=== PATIENT | male | born 1950 | race Caucasian/White ===

== ENCOUNTER 2016-08-12 04:11 | Inpatient (IN) | payer MEDICARE, MEDICAID ==
[~2016-08-12] VITALS: Ht 170.2 cm; Wt 82.2 kg
[~2016-08-12 04:11] MED LIST: ACLI400A2 IH; ALBU0.63 NEB; ALBU6.7H INH; ALEN70TA3 PO; AMLO2.5T2 PO; AMLO5TAB2 PO; ASPI-515 PO; ATOR40TA PO; ATOR40TA78 PO; CARV-39 PO; CHOL-1 PO; CLON0.2T PO; CLOP75TA PO; CLOP75TA22 PO; CYCL-259 PO; DOCU-30 PO; FERR325T20 PO; FURO-93 PO; GLIM1TAB PO; GLYB2.5T2 PO; HYDR-3138 PO; HYDR-3342 PO; HYDR12.53 PO; K DUR PO; LEVE750T37 PO; LISI-167 PO; LISI-420 PO; LISI40TA PO; MAGN400O4 PO; METF10002 PO; METH-356 PO; MORP30TA PO; MORP30TA81 PO; NIAC500T PO; NICO1PAT5 TD; NITR0.4T8 SL; OXYC10TA6 PO; POLY17PO5 PO; POTA20TA89 PO; PRAS10TA4 PO; ROSU10TA PO; ROSU20TA PO; SEIZURE MED PO; SIMV10TA3 PO; TAMS-11 PO; TIOT18CA INH
[2016-08-12] MEDS ORDERED: SODIUM CHLORIDE 0.9% 1,000 ML IV ONE (04:46)
[2016-08-12] MEDS ORDERED: ONDANSETRON 2MG/ML, 2ML ONE (04:59)
[2016-08-12] MEDS ORDERED: HYDROmorphone 1 MG/ML, 1ML ONE ×2 (04:59→07:58)
[2016-08-12] MEDS ORDERED: ONDANSETRON 2MG/ML, 2ML IVPush ONE (05:00)
[2016-08-12] MEDS ORDERED: SODIUM CHLORIDE FLUSH 10ML SYR IVF ONE (05:00)
[2016-08-12] MEDS: HYDROmorphone 1 MG/ML, 1ML IVPush PRN ×2 (05:08→08:03)
[2016-08-12 05:38] LABS: HEMOGLOBIN 13.5 g/dL (13.7-18.0)
[2016-08-12 05:39] LABS: ASPARTATE AMINO TRANSFERASE 7 U/L (15-37); BLOOD UREA NITROGEN 13 mg/dL (7-18)
[2016-08-12] MEDS ORDERED: SODIUM CHLORIDE 0.9% 1,000 ML IV SCH (09:40)
[2016-08-12] MEDS ORDERED: DOCUSATE 100 MG CAPSULE PO PRN (10:00)
[2016-08-12] MEDS: HEPARIN 5,000 UNITS/ML, 1ML SQ SCH ×2 (10:00→18:00)
[2016-08-12] MEDS ORDERED: BISACODYL 10 MG SUPP PR PRN (10:00)
[2016-08-12] MEDS ORDERED: TEMPLATE NON-FORMULARY MED. (Lisinopril** 40 MG) PO SCH (10:00)
[2016-08-12] MEDS ORDERED: ACETAMINOPHEN 325 MG TABLET PO PRN (10:00)
[2016-08-12] MEDS: PRASUGREL 10 MG TABLET PO SCH (10:00)
[2016-08-12] MEDS ORDERED: ONDANSETRON 2MG/ML, 2ML IVP PRN (10:00)
[2016-08-12] MEDS ORDERED: HEPARIN 5,000 UNITS/ML, 1ML ONE (10:46)
[2016-08-12] MEDS ORDERED: LISINOPRIL 20 MG TABLET ONE (10:46)
[2016-08-12] MEDS ORDERED: MORPHINE SULFATE 4 MG/ML, 1ML ONE ×2 (12:09→16:10)
[2016-08-12] MEDS: MORPHINE SULFATE 4 MG/ML, 1ML IVPush PRN ×4 (12:12→21:51)
[2016-08-12] MEDS ORDERED: LISINOPRIL 20 MG TABLET PO SCH (17:24)
[2016-08-12 17:48] VITALS: BP 138/95
[2016-08-12 19:15] VITALS: BP 119/84
[2016-08-12] MEDS: HYDROcodone/APAP 5/325 TABLET PO PRN (19:51)
[2016-08-12] MEDS: ALBUTEROL SULFATE INH SCH (21:00)
[2016-08-12] MEDS ORDERED: AMLODIPINE 5 MG TABLET PO SCH (21:00)
[2016-08-12] MEDS ORDERED: CARVEDILOL 25 MG TABLET PO SCH (21:00)
[2016-08-12] MEDS ORDERED: ASPIRIN 81 MG TABLET EC PO SCH (21:00)
[2016-08-12] MEDS: ATORVASTATIN 40 MG TABLET PO SCH (21:50)
[2016-08-12] MEDS: DOCUSATE 100 MG CAPSULE PO SCH (21:51)
[2016-08-12] MEDS: INSULIN REGULAR 100 UNITS/ML, 3ML VIAL SQ-INSULIN SCH (21:52)
[2016-08-13] MEDS: HEPARIN 5,000 UNITS/ML, 1ML SQ SCH ×4 (01:41→23:26)
[2016-08-13] MEDS: MORPHINE SULFATE 4 MG/ML, 1ML IVPush PRN ×3 (01:42→23:27)
[2016-08-13 01:51] VITALS: BP 90/51
[2016-08-13 03:54] VITALS: BP 96/70
[2016-08-13 06:25] LABS: HEMOGLOBIN 13.1 g/dL (13.7-18.0)
[2016-08-13 06:37] LABS: BLOOD UREA NITROGEN 19 mg/dL (7-18)
[2016-08-13 07:05] VITALS: BP 98/71
[2016-08-13] MEDS: ALBUTEROL SULFATE INH SCH ×2 (07:51→21:00)
[2016-08-13] MEDS: GLIMEPIRIDE 1 MG TABLET PO SCH (07:52)
[2016-08-13] MEDS: TAMSULOSIN 0.4 MG CAP.ER.24H PO SCH (07:52)
[2016-08-13] MEDS: LEVETIRACETAM 500 MG TABLET PO SCH (07:55)
[2016-08-13] MEDS: POTASSIUM CHLORIDE 20 MEQ TAB.ER.PRT PO SCH (07:56)
[2016-08-13] MEDS: PRASUGREL 10 MG TABLET PO SCH (07:57)
[2016-08-13] MEDS: FUROSEMIDE 20 MG TABLET PO SCH (07:58)
[2016-08-13] MEDS: ASPIRIN 81 MG TABLET EC PO SCH (07:59)
[2016-08-13] MEDS: AMLODIPINE 5 MG TABLET PO SCH ×2 (08:07→20:31)
[2016-08-13] MEDS: CARVEDILOL 25 MG TABLET PO SCH ×2 (08:07→20:31)
[2016-08-13] MEDS: LISINOPRIL 20 MG TABLET PO SCH (08:07)
[2016-08-13] MEDS: INSULIN REGULAR 100 UNITS/ML, 3ML VIAL SQ-INSULIN SCH ×4 (08:28→20:32)
[2016-08-13] MEDS: HYDROcodone/APAP 5/325 TABLET PO PRN ×3 (10:30→20:31)
[2016-08-13 13:44] VITALS: BP 114/69
[2016-08-13 19:35] VITALS: BP 116/76
[2016-08-13] MEDS: DOCUSATE 100 MG CAPSULE PO SCH (20:31)
[2016-08-13] MEDS: ATORVASTATIN 40 MG TABLET PO SCH (20:31)
[2016-08-13] MEDS: POLYETHYLENE GLYCOL 17 GM PACKET PO PRN (20:40)
[2016-08-13 22:31] VITALS: BP 128/86
[2016-08-14 01:33] VITALS: BP 100/67
[2016-08-14 05:27] LABS: HEMOGLOBIN 12.1 g/dL (13.7-18.0)
[2016-08-14 05:35] LABS: BLOOD UREA NITROGEN 23 mg/dL (7-18)
[2016-08-14] MEDS: HYDROcodone/APAP 5/325 TABLET PO PRN ×3 (06:04→20:31)
[2016-08-14 07:06] VITALS: BP 109/72
[2016-08-14] MEDS: ALBUTEROL SULFATE INH SCH ×2 (08:17→21:00)
[2016-08-14] MEDS: INSULIN REGULAR 100 UNITS/ML, 3ML VIAL SQ-INSULIN SCH ×4 (08:17→20:48)
[2016-08-14] MEDS: ASPIRIN 81 MG TABLET EC PO SCH (08:18)
[2016-08-14] MEDS: GLIMEPIRIDE 1 MG TABLET PO SCH (08:18)
[2016-08-14] MEDS: LEVETIRACETAM 500 MG TABLET PO SCH (08:19)
[2016-08-14] MEDS: PRASUGREL 10 MG TABLET PO SCH (08:19)
[2016-08-14] MEDS: POTASSIUM CHLORIDE 20 MEQ TAB.ER.PRT PO SCH (08:21)
[2016-08-14] MEDS: TAMSULOSIN 0.4 MG CAP.ER.24H PO SCH (08:23)
[2016-08-14] MEDS: FUROSEMIDE 20 MG TABLET PO SCH (09:00)
[2016-08-14] MEDS: AMLODIPINE 5 MG TABLET PO SCH ×2 (09:00→20:31)
[2016-08-14] MEDS: LISINOPRIL 20 MG TABLET PO SCH (10:49)
[2016-08-14] MEDS: CARVEDILOL 25 MG TABLET PO SCH ×2 (10:49→20:31)
[2016-08-14] MEDS: HEPARIN 5,000 UNITS/ML, 1ML SQ SCH ×2 (10:51→18:23)
[2016-08-14] MEDS: MORPHINE SULFATE 4 MG/ML, 1ML IVPush PRN ×4 (12:20→23:25)
[2016-08-14 12:41] VITALS: BP 113/76
[2016-08-14 18:48] VITALS: BP 108/73
[2016-08-14 19:11] VITALS: BP 109/72
[2016-08-14] MEDS: POLYETHYLENE GLYCOL 17 GM PACKET PO PRN (20:30)
[2016-08-14] MEDS: ATORVASTATIN 40 MG TABLET PO SCH (20:31)
[2016-08-14] MEDS: DOCUSATE 100 MG CAPSULE PO SCH (20:31)
[2016-08-14 23:24] VITALS: BP 124/85
[2016-08-15 00:59] VITALS: BP 102/67
[2016-08-15] MEDS: HYDROcodone/APAP 5/325 TABLET PO PRN ×2 (02:05→06:28)
[2016-08-15] MEDS: HEPARIN 5,000 UNITS/ML, 1ML SQ SCH ×2 (02:06→08:20)
[2016-08-15] MEDS: MORPHINE SULFATE 4 MG/ML, 1ML IVPush PRN (03:38)
[2016-08-15 05:11] LABS: HEMOGLOBIN 12.3 g/dL (13.7-18.0)
[2016-08-15 05:18] LABS: BLOOD UREA NITROGEN 24 mg/dL (7-18)
[2016-08-15 06:41] VITALS: BP 110/74
[2016-08-15] MEDS: LEVETIRACETAM 500 MG TABLET PO SCH (08:19)
[2016-08-15] MEDS: TAMSULOSIN 0.4 MG CAP.ER.24H PO SCH (08:19)
[2016-08-15] MEDS: GLIMEPIRIDE 1 MG TABLET PO SCH (08:19)
[2016-08-15] MEDS: LISINOPRIL 20 MG TABLET PO SCH (08:19)
[2016-08-15] MEDS: INSULIN REGULAR 100 UNITS/ML, 3ML VIAL SQ-INSULIN SCH (08:19)
[2016-08-15] MEDS: POTASSIUM CHLORIDE 20 MEQ TAB.ER.PRT PO SCH (08:19)
[2016-08-15] MEDS: AMLODIPINE 5 MG TABLET PO SCH (08:20)
[2016-08-15] MEDS: CARVEDILOL 25 MG TABLET PO SCH (08:20)
[2016-08-15] MEDS: FUROSEMIDE 20 MG TABLET PO SCH (08:20)
[2016-08-15] MEDS: PRASUGREL 10 MG TABLET PO SCH (08:20)
[2016-08-15] MEDS: ASPIRIN 81 MG TABLET EC PO SCH (08:20)
[2016-08-15] MEDS: ALBUTEROL SULFATE INH SCH (08:23)
[2016-08-15] MEDS ORDERED: ALBUTEROL SULFATE 2.5 MG/3 ML NPPB SCH (09:00)
[2016-08-15] MEDS ORDERED: ASPI-515 PO (09:27)
[2016-08-15] MEDS ORDERED: AMLO5TAB2 PO (09:27)
== END 2016-08-15 13:41 | disposition home or self-care (01) | DRG 101 ==
LOC: ED 07:57 → EDIP 08:46 → 3NE 17:17
PROVIDERS: ADMIT Family Medicine; ATTEND Family Medicine
DX: G40.909 Epilepsy, unspecified, not intractable, without status epilepticus (principal); G89.11 Acute pain due to trauma; W01.0XXA Fall on same level from slipping, tripping and stumbling without subsequent striking against object, initial encounter; I25.5 Ischemic cardiomyopathy; I48.0 Paroxysmal atrial fibrillation; E11.22 Type 2 diabetes mellitus with diabetic chronic kidney disease; E78.5 Hyperlipidemia, unspecified; I25.10 Atherosclerotic heart disease of native coronary artery without angina pectoris; Z99.81 Dependence on supplemental oxygen; J44.9 Chronic obstructive pulmonary disease, unspecified; I71.4 Abdominal aortic aneurysm, without rupture; Z85.528 Personal history of other malignant neoplasm of kidney; Z86.73 Personal history of transient ischemic attack (TIA), and cerebral infarction without residual deficits; I73.9 Peripheral vascular disease, unspecified; Z66 Do not resuscitate; N18.3 Chronic kidney disease, stage 3 (moderate); Z91.14 Patient's other noncompliance with medication regimen; Y93.01 Activity, walking, marching and hiking; R26.2 Difficulty in walking, not elsewhere classified; I12.9 Hypertensive chronic kidney disease with stage 1 through stage 4 chronic kidney disease, or unspecified chronic kidney disease; M06.9 Rheumatoid arthritis, unspecified; F17.200 Nicotine dependence, unspecified, uncomplicated; G89.29 Other chronic pain; M54.9 Dorsalgia, unspecified; Z87.442 Personal history of urinary calculi; Z79.899 Other long term (current) drug therapy
CPT/HCPCS: 36415; 72110; 72192; 80048; 80053; 82542; 82962; 83735; 85025; 93005; 94640; 96361; 96372; 96374; 96375; 96376; J1170; J1644; J1815; J2405; J7613; J7030

== ENCOUNTER 2016-11-18 22:02 | Inpatient (IN) | payer MEDICARE, MEDICAID ==
[~2016-11-18] VITALS: Ht 160 cm; Wt 71.1 kg
[2016-11-18] MEDS ORDERED: ALBUTEROL/IPRATROPIUM 2.5MG/0.5MG, 3 ML ONE (22:20)
[2016-11-18] MEDS ORDERED: methylPREDNISolone SOD SUCC 125 MG/2 ML IVP ONE (22:30)
[2016-11-18] MEDS ORDERED: SODIUM CHLORIDE 0.9% 1,000ML IVBOLUS ONE (22:30)
[2016-11-18] MEDS ORDERED: ALBUTEROL/IPRATROPIUM 2.5MG/0.5MG, 3 ML NPPB ONE (22:30)
[2016-11-18] MEDS ORDERED: SODIUM CHLORIDE FLUSH 10ML SYR IVF ONE (22:30)
[2016-11-18] MEDS ORDERED: methylPREDNISolone SOD SUCC 125 MG/2 ML ONE (22:34)
[2016-11-18 22:48] LABS: BLOOD UREA NITROGEN 29 mg/dL (7-18)
[2016-11-18 22:53] LABS: IS PT STATUS REG ER OR PRE ER? YES
[2016-11-18] MEDS ORDERED: NITROGLYCERIN OINT 2%, 1GM TP ONE ×2 (23:15→23:30)
[2016-11-19] VITALS (11 sets, daily range): BP systolic 82–149; BP diastolic 58–106
[2016-11-19] MEDS ORDERED: BISACODYL 10 MG SUPP PR PRN (00:30)
[2016-11-19] MEDS ORDERED: SODIUM CHLORIDE FLUSH 10ML SYR IVF PRN (00:30)
[2016-11-19] MEDS ORDERED: POLYETHYLENE GLYCOL 17 GM PACKET PO PRN ×2 (00:30)
[2016-11-19] MEDS: methylPREDNISolone SOD SUCC 125 MG/2 ML IVPush SCH ×5 (00:30→23:55)
[2016-11-19] MEDS ORDERED: ENALAPRILAT 1.25 MG/ML, 2ML IVPush PRN (00:30)
[2016-11-19] MEDS ORDERED: ONDANSETRON 2MG/ML, 2ML IVPush PRN (00:30)
[2016-11-19] MEDS ORDERED: MORPHINE SULFATE 4 MG/ML, 1ML ONE (00:44)
[2016-11-19] MEDS: morphine SULFATE 10 MG/ML, 1ML IVPush PRN ×4 (00:48→23:54)
[2016-11-19] MEDS: AZITHROMYCIN 500 MG in SODIUM CHLORIDE 0.9% 250 ML IV SCH ×2 (01:12→23:55)
[2016-11-19] MEDS ORDERED: ALBUTEROL SULFATE 2.5 MG/3 ML NPPB PRN (01:30)
[2016-11-19] MEDS ORDERED: HEPARIN 5,000 UNITS/ML, 1ML IV PRN (02:00)
[2016-11-19] MEDS ORDERED: HEPARIN 5,000 UNITS/ML, 1ML IV ONE (02:00)
[2016-11-19] MEDS ORDERED: HEPARIN 25,000 UNITS/500ML PMX 500 ML IV PRN (02:00)
[2016-11-19] MEDS: FUROSEMIDE 20 MG/2 ML IV SCH ×3 (04:27→17:00)
[2016-11-19] MEDS: DOCUSATE 100 MG CAPSULE PO SCH ×2 (04:27→20:40)
[2016-11-19] MEDS: ATORVASTATIN 80 MG TABLET PO SCH ×2 (04:27→20:41)
[2016-11-19 06:04] LABS: BLOOD UREA NITROGEN 28 mg/dL (7-18)
[2016-11-19 06:09] LABS: ASPARTATE AMINO TRANSFERASE 12 U/L (15-37)
[2016-11-19 06:13] LABS: IS PT STATUS REG ER OR PRE ER? NO
[2016-11-19] MEDS ORDERED: ALBUTEROL/IPRATROPIUM 2.5MG/0.5MG, 3 ML NPPB SCH (07:00)
[2016-11-19] MEDS: NITROGLYCERIN 0.4 MG BOTTLE (25 TABS) SL PRN ×3 (08:19→23:44)
[2016-11-19] MEDS ORDERED: NITROGLYCERIN 0.4 MG BOTTLE (25 TABS) SL PRN (08:30)
[2016-11-19] MEDS ORDERED: NITROGLYCERIN 0.4 MG/SPRAY SL PRN (08:30)
[2016-11-19] MEDS ORDERED: CARVEDILOL 25 MG TABLET PO SCH (09:00)
[2016-11-19] MEDS ORDERED: POTASSIUM CHLORIDE 20 MEQ TAB.ER.PRT PO SCH (09:00)
[2016-11-19] MEDS ORDERED: AMLODIPINE 5 MG TABLET PO SCH (09:00)
[2016-11-19] MEDS ORDERED: FUROSEMIDE 20 MG TABLET PO SCH (09:00)
[2016-11-19] MEDS ORDERED: LISINOPRIL 20 MG TABLET PO SCH (09:00)
[2016-11-19] MEDS ORDERED: LEVETIRACETAM 500 MG TABLET PO SCH (09:00)
[2016-11-19] MEDS: GLIMEPIRIDE 1 MG TABLET PO SCH (09:32)
[2016-11-19] MEDS: ASPIRIN 81 MG TABLET EC PO SCH (09:33)
[2016-11-19] MEDS: PRASUGREL 10 MG TABLET PO SCH (09:34)
[2016-11-19] MEDS: TAMSULOSIN 0.4 MG CAP.ER.24H PO SCH (09:34)
[2016-11-19] MEDS: SENNA/DOCUSATE TABLET PO SCH (09:35)
[2016-11-19 10:49] LABS: IS PT STATUS REG ER OR PRE ER? NO
[2016-11-19] MEDS ORDERED: LEVE500T8 PO (11:41)
[2016-11-19] MEDS ORDERED: SODIUM CHLORIDE 0.9%, 500ML IVBOLUS ONE (12:00)
[2016-11-19] MEDS: ALBUTEROL/IPRATROPIUM 2.5MG/0.5MG, 3 ML NPPB SCH ×2 (13:57→20:50)
[2016-11-19] MEDS: ACETAMINOPHEN 325 MG TABLET PO PRN (16:07)
[2016-11-19] MEDS: LEVETIRACETAM 500 MG TABLET PO SCH (20:41)
[2016-11-19] MEDS: CARVEDILOL 12.5 MG TABLET PO SCH (20:41)
[2016-11-20 01:15] VITALS: BP 131/82
[2016-11-20] MEDS: ACETAMINOPHEN 325 MG TABLET PO PRN ×2 (02:52→16:59)
[2016-11-20 05:35] LABS: BLOOD UREA NITROGEN 45 mg/dL (7-18)
[2016-11-20 05:38] LABS: ASPARTATE AMINO TRANSFERASE 18 U/L (15-37)
[2016-11-20] MEDS: methylPREDNISolone SOD SUCC 125 MG/2 ML IVPush SCH ×2 (06:23→12:50)
[2016-11-20] MEDS ORDERED: FUROSEMIDE 20 MG/2 ML IV SCH (07:30)
[2016-11-20 08:12] LABS: DIFF TOTAL CELLS COUNTED 100 CELL DIFF
[2016-11-20 08:14] LABS: GIANT PLATELETS 1+; LARGE PLATELETS 1+; VERIFY COUNTS? YES
[2016-11-20 08:15] LABS: ANISOCYTOSIS 1+
[2016-11-20 08:16] LABS: POLYCHROMASIA 1+
[2016-11-20 08:26] VITALS: BP 100/68
[2016-11-20] MEDS: ALBUTEROL/IPRATROPIUM 2.5MG/0.5MG, 3 ML NPPB SCH ×3 (09:00→21:05)
[2016-11-20] MEDS: CARVEDILOL 12.5 MG TABLET PO SCH ×2 (09:00→22:06)
[2016-11-20] MEDS: AMLODIPINE 5 MG TABLET PO SCH (09:00)
[2016-11-20] MEDS: LEVETIRACETAM 500 MG TABLET PO SCH ×2 (09:08→22:06)
[2016-11-20] MEDS: SENNA/DOCUSATE TABLET PO SCH (09:08)
[2016-11-20] MEDS: ASPIRIN 81 MG TABLET EC PO SCH (09:08)
[2016-11-20] MEDS: TAMSULOSIN 0.4 MG CAP.ER.24H PO SCH (09:08)
[2016-11-20] MEDS: GLIMEPIRIDE 1 MG TABLET PO SCH (09:08)
[2016-11-20] MEDS: PRASUGREL 10 MG TABLET PO SCH (10:48)
[2016-11-20 10:49] VITALS: BP 107/73
[2016-11-20] MEDS: LISINOPRIL 20 MG TABLET PO SCH (10:49)
[2016-11-20 12:53] VITALS: BP 87/62
[2016-11-20 13:11] VITALS: BP 107/77
[2016-11-20 15:14] LABS: BLOOD UREA NITROGEN 49 mg/dL (7-18)
[2016-11-20] MEDS: INSULIN ASPART 100 UNITS/ML, PEN SQ-INSULIN SCH ×2 (16:59→22:07)
[2016-11-20 19:55] VITALS: BP 120/89
[2016-11-20] MEDS: DOCUSATE 100 MG CAPSULE PO SCH (22:06)
[2016-11-20] MEDS: ATORVASTATIN 80 MG TABLET PO SCH (22:16)
[2016-11-21] MEDS: AZITHROMYCIN 500 MG in SODIUM CHLORIDE 0.9% 250 ML IV SCH (01:01)
[2016-11-21 02:17] VITALS: BP 105/70
[2016-11-21] MEDS: ACETAMINOPHEN 325 MG TABLET PO PRN ×4 (03:20→21:57)
[2016-11-21 05:59] LABS: BLOOD UREA NITROGEN 53 mg/dL (7-18)
[2016-11-21 08:21] VITALS: BP 128/77
[2016-11-21] MEDS: ALBUTEROL/IPRATROPIUM 2.5MG/0.5MG, 3 ML NPPB SCH ×2 (09:00→21:20)
[2016-11-21] MEDS: INSULIN ASPART 100 UNITS/ML, PEN SQ-INSULIN SCH ×4 (09:07→20:19)
[2016-11-21] MEDS: SENNA/DOCUSATE TABLET PO SCH (09:07)
[2016-11-21] MEDS: LISINOPRIL 20 MG TABLET PO SCH (09:08)
[2016-11-21] MEDS: CARVEDILOL 12.5 MG TABLET PO SCH ×2 (09:08→21:00)
[2016-11-21] MEDS: TAMSULOSIN 0.4 MG CAP.ER.24H PO SCH (09:08)
[2016-11-21] MEDS: GLIMEPIRIDE 1 MG TABLET PO SCH (09:08)
[2016-11-21] MEDS: ASPIRIN 81 MG TABLET EC PO SCH (09:08)
[2016-11-21] MEDS: LEVETIRACETAM 500 MG TABLET PO SCH ×2 (09:08→21:54)
[2016-11-21] MEDS: PRASUGREL 10 MG TABLET PO SCH (09:08)
[2016-11-21] MEDS: AMLODIPINE 5 MG TABLET PO SCH (09:08)
[2016-11-21 12:21] LABS: PATH.CAST-FLAG NOT PRESENT; SPERM-FLAG NOT PRESENT; SRC-FLAG NOT PRESENT; XTAL-FLAG NOT PRESENT; YLC-FLAG NOT PRESENT
[2016-11-21 13:06] VITALS: BP 109/76
[2016-11-21 18:47] VITALS: BP 92/74
[2016-11-21] MEDS: ATORVASTATIN 80 MG TABLET PO SCH (21:54)
[2016-11-21] MEDS: DOCUSATE 100 MG CAPSULE PO SCH (21:54)
[2016-11-22] MEDS: AZITHROMYCIN 500 MG in SODIUM CHLORIDE 0.9% 250 ML IV SCH (01:37)
[2016-11-22 01:57] VITALS: BP 116/73
[2016-11-22] MEDS: ACETAMINOPHEN 325 MG TABLET PO PRN ×4 (04:56→17:46)
[2016-11-22 06:01] LABS: BLOOD UREA NITROGEN 52 mg/dL (7-18)
[2016-11-22] MEDS: INSULIN ASPART 100 UNITS/ML, PEN SQ-INSULIN SCH ×4 (07:00→22:00)
[2016-11-22] MEDS: ALBUTEROL/IPRATROPIUM 2.5MG/0.5MG, 3 ML NPPB SCH ×2 (07:49→21:40)
[2016-11-22 08:00] VITALS: BP 115/82
[2016-11-22] MEDS: TAMSULOSIN 0.4 MG CAP.ER.24H PO SCH (08:56)
[2016-11-22] MEDS: LISINOPRIL 20 MG TABLET PO SCH (08:56)
[2016-11-22] MEDS: AMLODIPINE 5 MG TABLET PO SCH (08:56)
[2016-11-22] MEDS: GLIMEPIRIDE 1 MG TABLET PO SCH (08:56)
[2016-11-22] MEDS: PRASUGREL 10 MG TABLET PO SCH (08:57)
[2016-11-22] MEDS: FUROSEMIDE 20 MG TABLET PO SCH (08:57)
[2016-11-22] MEDS: ASPIRIN 81 MG TABLET EC PO SCH (08:57)
[2016-11-22] MEDS: CARVEDILOL 12.5 MG TABLET PO SCH ×2 (08:57→21:58)
[2016-11-22] MEDS: LEVETIRACETAM 500 MG TABLET PO SCH ×2 (08:57→21:58)
[2016-11-22] MEDS: SENNA/DOCUSATE TABLET PO SCH (08:57)
[2016-11-22] MEDS ORDERED: POLYETHYLENE GLYCOL 17 GM PACKET NG ONE (11:00)
[2016-11-22 12:59] VITALS: BP_SYST 106; BP_SYST 91; BP_DIAS 67; BP_DIAS 76
[2016-11-22 15:09] VITALS: BP 102/69
[2016-11-22 19:55] VITALS: BP 115/68
[2016-11-22] MEDS: DOCUSATE 100 MG CAPSULE PO SCH (21:58)
[2016-11-22] MEDS: ATORVASTATIN 80 MG TABLET PO SCH (21:58)
[2016-11-23 01:00] VITALS: BP 102/69
[2016-11-23] MEDS: ACETAMINOPHEN 325 MG TABLET PO PRN ×3 (02:31→11:04)
[2016-11-23 06:01] LABS: BLOOD UREA NITROGEN 50 mg/dL (7-18)
[2016-11-23 06:33] VITALS: BP 101/68
[2016-11-23 08:15] VITALS: BP 107/74
[2016-11-23 08:16] VITALS: BP_SYST 118; BP_SYST 99; BP_DIAS 68; BP_DIAS 77
[2016-11-23] MEDS: CARVEDILOL 12.5 MG TABLET PO SCH (08:23)
[2016-11-23] MEDS: TAMSULOSIN 0.4 MG CAP.ER.24H PO SCH (08:23)
[2016-11-23] MEDS: ASPIRIN 81 MG TABLET EC PO SCH (08:23)
[2016-11-23] MEDS: GLIMEPIRIDE 1 MG TABLET PO SCH (08:23)
[2016-11-23] MEDS: INSULIN ASPART 100 UNITS/ML, PEN SQ-INSULIN SCH ×2 (08:23→11:13)
[2016-11-23] MEDS: LISINOPRIL 20 MG TABLET PO SCH (08:23)
[2016-11-23] MEDS: FUROSEMIDE 20 MG TABLET PO SCH (08:23)
[2016-11-23] MEDS: LEVETIRACETAM 500 MG TABLET PO SCH (08:23)
[2016-11-23] MEDS: PRASUGREL 10 MG TABLET PO SCH (08:23)
[2016-11-23] MEDS: AMLODIPINE 5 MG TABLET PO SCH (08:23)
[2016-11-23] MEDS: SENNA/DOCUSATE TABLET PO SCH (08:24)
[2016-11-23] MEDS: ALBUTEROL/IPRATROPIUM 2.5MG/0.5MG, 3 ML NPPB SCH (09:00)
[2016-11-23] MEDS ORDERED: AZITHROMYCIN 250 MG TABLET PO SCH (09:00)
[2016-11-23] MEDS ORDERED: GLIM1TAB PO (12:25)
[2016-11-23] MEDS ORDERED: PRED10TA PO (12:25)
[2016-11-23] MEDS ORDERED: AZIT250T89 PO (12:25)
[2016-11-23] MEDS ORDERED: SPIR25TA PO (12:48)
== END 2016-11-23 14:12 | disposition home or self-care (01) | DRG 208 ==
LOC: ED 23:09 → EDIP 11-19 00:06 → 5SO 11-19 01:22
PROVIDERS: ADMIT Internal Medicine; ATTEND Internal Medicine
PROC: 5A1935Z Respiratory Ventilation, Less than 24 Consecutive Hours (ICD-10-PCS; principal; 2016-11-22)
DX: J96.21 Acute and chronic respiratory failure with hypoxia (principal); I21.3 ST elevation (STEMI) myocardial infarction of unspecified site; I13.0 Hypertensive heart and chronic kidney disease with heart failure and stage 1 through stage 4 chronic kidney disease, or unspecified chronic kidney disease; J44.1 Chronic obstructive pulmonary disease with (acute) exacerbation; E44.1 Mild protein-calorie malnutrition; J96.10 Chronic respiratory failure, unspecified whether with hypoxia or hypercapnia; I25.10 Atherosclerotic heart disease of native coronary artery without angina pectoris; D69.6 Thrombocytopenia, unspecified; D72.829 Elevated white blood cell count, unspecified; E11.22 Type 2 diabetes mellitus with diabetic chronic kidney disease; E11.65 Type 2 diabetes mellitus with hyperglycemia; Z68.27 Body mass index [BMI] 27.0-27.9, adult; E78.5 Hyperlipidemia, unspecified; E87.5 Hyperkalemia; F17.200 Nicotine dependence, unspecified, uncomplicated; G40.909 Epilepsy, unspecified, not intractable, without status epilepticus; I25.5 Ischemic cardiomyopathy; I48.0 Paroxysmal atrial fibrillation; I50.9 Heart failure, unspecified; I71.4 Abdominal aortic aneurysm, without rupture; E11.51 Type 2 diabetes mellitus with diabetic peripheral angiopathy without gangrene; K59.00 Constipation, unspecified; M06.9 Rheumatoid arthritis, unspecified; N18.3 Chronic kidney disease, stage 3 (moderate); N40.0 Benign prostatic hyperplasia without lower urinary tract symptoms; Z66 Do not resuscitate; Z85.528 Personal history of other malignant neoplasm of kidney; Z71.6 Tobacco abuse counseling; I25.2 Old myocardial infarction; Z86.73 Personal history of transient ischemic attack (TIA), and cerebral infarction without residual deficits; Z87.442 Personal history of urinary calculi; Z91.19 Patient's noncompliance with other medical treatment and regimen; Z99.81 Dependence on supplemental oxygen; Z89.421 Acquired absence of other right toe(s); Z90.49 Acquired absence of other specified parts of digestive tract
CPT/HCPCS: 36415; 71010; 80048; 80053; 81001; 82040; 82962; 83036; 83605; 84145; 84484; 85025; 85520; 87070; 87205; 93005; 93306; 94640; 96374; 96375; J0456; J1644; J1815; J7620; J1940; J2270; J2930; J7030; J7040; J7050; J7512

== ENCOUNTER 2016-12-10 16:17 | Inpatient (IN) | payer MEDICARE, MEDICAID ==
[~2016-12-10] VITALS: Ht 177.8 cm; Wt 69.6 kg
[~2016-12-10 16:17] MED LIST changes: +AZIT250T89 PO; +LEVE500T8 PO; +PRED10TA PO; +SPIR25TA PO
[2016-12-10] MEDS ORDERED: SODIUM CHLORIDE FLUSH 10ML SYR IVF ONE (17:00)
[2016-12-10] MEDS ORDERED: PLEASE ENTER HEIGHT AND WEIGHT MC SCH (17:00)
[2016-12-10] MEDS ORDERED: SODIUM CHLORIDE 0.9% 1,000ML IVBOLUS ONE (17:00)
[2016-12-10] MEDS ORDERED: MORPHINE SULFATE 4 MG/ML, 1ML IVPush ONE ×2 (17:00→20:00)
[2016-12-10] MEDS ORDERED: MORPHINE SULFATE 4 MG/ML, 1ML ONE ×2 (17:01→19:50)
[2016-12-10] MEDS ORDERED: CLON0.2T PO (17:08)
[2016-12-10 17:09] LABS: HEMATOCRIT 41.4 % (39.2-51.8); HEMOGLOBIN 13.2 g/dL (13.7-18.0); WHITE BLOOD COUNT 5.1 x10^3/uL (3.4-10)
[2016-12-10 17:22] LABS: ASPARTATE AMINO TRANSFERASE 10 U/L (15-37); BLOOD UREA NITROGEN 16 mg/dL (7-18)
[2016-12-10 17:33] LABS: IS PT STATUS REG ER OR PRE ER? YES
[2016-12-10] MEDS ORDERED: ASPIRIN 81 MG TABLET CHEW PO ONE (18:00)
[2016-12-10] MEDS ORDERED: LABETALOL 5MG/ML, 20ML IVPush ONE (18:00)
[2016-12-10] MEDS ORDERED: ASPIRIN 81 MG TABLET CHEW ONE (18:19)
[2016-12-10] MEDS ORDERED: LABETALOL 5MG/ML, 20ML ONE (18:19)
[2016-12-10] MEDS ORDERED: POLYETHYLENE GLYCOL 17 GM PACKET PO PRN (20:00)
[2016-12-10] MEDS ORDERED: BISACODYL 10 MG SUPP PR PRN (20:00)
[2016-12-10] MEDS ORDERED: NITROGLYCERIN 0.4 MG BOTTLE (25 TABS) SL PRN (20:00)
[2016-12-10] MEDS ORDERED: ONDANSETRON 2MG/ML, 2ML IVPush PRN (20:00)
[2016-12-10] MEDS ORDERED: ACETAMINOPHEN 325 MG TABLET PO PRN (20:00)
[2016-12-10 20:30] LABS: FERRITIN 40.2 ng/mL (26-388)
[2016-12-10 21:14] VITALS: BP 111/76
[2016-12-10 21:54] VITALS: BP 111/76
[2016-12-10] MEDS: HEPARIN 5,000 UNITS/ML, 1ML SQ SCH (22:55)
[2016-12-10] MEDS: FUROSEMIDE 20 MG/2 ML IV SCH (22:55)
[2016-12-10] MEDS: NICOTINE 21 MG/24 HR PATCH.TD24 TD SCH (22:55)
[2016-12-10] MEDS: LEVETIRACETAM 500 MG TABLET PO SCH (22:56)
[2016-12-10] MEDS: ATORVASTATIN 40 MG TABLET PO SCH (22:56)
[2016-12-10] MEDS: SODIUM CHLORIDE FLUSH 10ML SYR IVF SCH (22:57)
[2016-12-10] MEDS: CARVEDILOL 12.5 MG TABLET PO SCH (22:57)
[2016-12-10] MEDS: morphine SULFATE 10 MG/ML, 1ML IVPush PRN (23:01)
[2016-12-10] MEDS ORDERED: ALBUTEROL/IPRATROPIUM 2.5MG/0.5MG, 3 ML ONE (23:03)
[2016-12-10] MEDS ORDERED: ALBUTEROL/IPRATROPIUM 2.5MG/0.5MG, 3 ML NPPB PRN (23:30)
[2016-12-10 23:46] LABS: IS PT STATUS REG ER OR PRE ER? NO
[2016-12-11 01:10] VITALS: BP 127/86
[2016-12-11 05:47] LABS: HEMATOCRIT 38.2 % (39.2-51.8); HEMOGLOBIN 12.3 g/dL (13.7-18.0); WHITE BLOOD COUNT 5.1 x10^3/uL (3.4-10)
[2016-12-11] MEDS: HEPARIN 5,000 UNITS/ML, 1ML SQ SCH ×3 (06:03→20:04)
[2016-12-11] MEDS: morphine SULFATE 10 MG/ML, 1ML IVPush PRN ×3 (06:03→19:59)
[2016-12-11 06:15] LABS: ASPARTATE AMINO TRANSFERASE 83 U/L (15-37); BLOOD UREA NITROGEN 21 mg/dL (7-18)
[2016-12-11 06:20] LABS: IS PT STATUS REG ER OR PRE ER? NO
[2016-12-11] MEDS: ALBUTEROL/IPRATROPIUM 2.5MG/0.5MG, 3 ML NPPB SCH ×4 (06:51→20:10)
[2016-12-11 08:57] VITALS: BP 117/82
[2016-12-11] MEDS: CARVEDILOL 12.5 MG TABLET PO SCH (09:00)
[2016-12-11] MEDS ORDERED: FUROSEMIDE 20 MG TABLET PO SCH (09:00)
[2016-12-11] MEDS ORDERED: REGADENOSON 0.4 MG/5 ML SYRINGE ONE (10:28)
[2016-12-11] MEDS: LEVETIRACETAM 500 MG TABLET PO SCH ×2 (12:50→20:02)
[2016-12-11] MEDS: CARVEDILOL 25 MG TABLET PO SCH ×2 (12:50→20:04)
[2016-12-11] MEDS: SENNA/DOCUSATE TABLET PO SCH (12:50)
[2016-12-11] MEDS: SPIRONOLACTONE 25 MG TABLET PO SCH (12:51)
[2016-12-11] MEDS: FUROSEMIDE 20 MG/2 ML IV SCH ×2 (12:51→20:00)
[2016-12-11] MEDS: ASPIRIN 81 MG TABLET EC PO SCH (12:51)
[2016-12-11] MEDS: PRASUGREL 10 MG TABLET PO SCH (12:51)
[2016-12-11] MEDS: SODIUM CHLORIDE FLUSH 10ML SYR IVF SCH ×2 (12:52→21:00)
[2016-12-11 13:39] VITALS: BP 148/84
[2016-12-11] MEDS: LISINOPRIL 20 MG TABLET PO SCH (13:57)
[2016-12-11 19:50] VITALS: BP 124/86
[2016-12-11] MEDS: ATORVASTATIN 40 MG TABLET PO SCH (20:02)
[2016-12-11] MEDS: NICOTINE 21 MG/24 HR PATCH.TD24 TD SCH (20:03)
[2016-12-12 00:54] VITALS: BP 100/70
[2016-12-12] MEDS ORDERED: MAGNESIUM SULFATE PMX 2GM/50ML 50 ML IV ONE (01:00)
[2016-12-12] MEDS: morphine SULFATE 10 MG/ML, 1ML IVPush PRN ×3 (01:10→22:02)
[2016-12-12] MEDS: HEPARIN 5,000 UNITS/ML, 1ML SQ SCH ×3 (06:10→22:06)
[2016-12-12 06:13] LABS: BLOOD UREA NITROGEN 26 mg/dL (7-18)
[2016-12-12] MEDS: ALBUTEROL/IPRATROPIUM 2.5MG/0.5MG, 3 ML NPPB SCH ×4 (07:00→19:59)
[2016-12-12 08:05] VITALS: BP 109/78
[2016-12-12] MEDS: CARVEDILOL 25 MG TABLET PO SCH ×2 (08:09→22:05)
[2016-12-12] MEDS: SENNA/DOCUSATE TABLET PO SCH (08:09)
[2016-12-12] MEDS: PRASUGREL 10 MG TABLET PO SCH (08:09)
[2016-12-12] MEDS: FUROSEMIDE 20 MG/2 ML IV SCH (08:09)
[2016-12-12] MEDS: SODIUM CHLORIDE FLUSH 10ML SYR IVF SCH ×2 (08:10→22:05)
[2016-12-12] MEDS: ASPIRIN 81 MG TABLET EC PO SCH (08:10)
[2016-12-12] MEDS: LEVETIRACETAM 500 MG TABLET PO SCH ×2 (08:10→22:05)
[2016-12-12] MEDS: FUROSEMIDE 20 MG TABLET PO SCH (10:00)
[2016-12-12] MEDS: SPIRONOLACTONE 25 MG TABLET PO SCH (14:30)
[2016-12-12 15:19] VITALS: BP 106/71
[2016-12-12] MEDS: LISINOPRIL 20 MG TABLET PO SCH (15:33)
[2016-12-12 20:23] VITALS: BP 115/78
[2016-12-12 22:01] VITALS: BP 115/78
[2016-12-12] MEDS: NICOTINE 21 MG/24 HR PATCH.TD24 TD SCH (22:05)
[2016-12-12] MEDS: ATORVASTATIN 40 MG TABLET PO SCH (22:05)
[2016-12-13 01:42] VITALS: BP 111/72
[2016-12-13] MEDS: morphine SULFATE 10 MG/ML, 1ML IVPush PRN ×2 (01:48→05:25)
[2016-12-13] MEDS: HEPARIN 5,000 UNITS/ML, 1ML SQ SCH ×3 (05:20→21:07)
[2016-12-13] MEDS: ALBUTEROL/IPRATROPIUM 2.5MG/0.5MG, 3 ML NPPB SCH ×4 (07:29→20:00)
[2016-12-13 07:54] VITALS: BP 106/70
[2016-12-13] MEDS: PRASUGREL 10 MG TABLET PO SCH (07:58)
[2016-12-13] MEDS: LEVETIRACETAM 500 MG TABLET PO SCH ×2 (07:58→21:07)
[2016-12-13] MEDS: FUROSEMIDE 20 MG TABLET PO SCH (07:58)
[2016-12-13] MEDS: LISINOPRIL 20 MG TABLET PO SCH (07:58)
[2016-12-13] MEDS: SENNA/DOCUSATE TABLET PO SCH (07:58)
[2016-12-13] MEDS: SPIRONOLACTONE 25 MG TABLET PO SCH (07:59)
[2016-12-13] MEDS: CARVEDILOL 25 MG TABLET PO SCH ×2 (07:59→21:07)
[2016-12-13] MEDS: SODIUM CHLORIDE FLUSH 10ML SYR IVF SCH ×2 (07:59→21:07)
[2016-12-13] MEDS: ASPIRIN 81 MG TABLET EC PO SCH (07:59)
[2016-12-13] MEDS: ISOSORBIDE MONONITRATE ER 30 MG TABLET PO SCH (07:59)
[2016-12-13 13:30] VITALS: BP 99/64
[2016-12-13 16:26] VITALS: BP 103/74
[2016-12-13 19:08] VITALS: BP 102/67
[2016-12-13] MEDS ORDERED: NITROGLYCERIN 0.4 MG BOTTLE (25 TABS) SL PRN (20:30)
[2016-12-13] MEDS ORDERED: BISACODYL 10 MG SUPP PR PRN (20:30)
[2016-12-13] MEDS ORDERED: ACETAMINOPHEN 325 MG TABLET PO PRN (20:30)
[2016-12-13] MEDS: NICOTINE 21 MG/24 HR PATCH.TD24 TD SCH (21:06)
[2016-12-13] MEDS: ATORVASTATIN 40 MG TABLET PO SCH (21:07)
[2016-12-14 03:18] VITALS: BP 105/75
[2016-12-14] MEDS: ALBUTEROL/IPRATROPIUM 2.5MG/0.5MG, 3 ML NPPB SCH ×3 (07:00→14:52)
[2016-12-14] MEDS: SPIRONOLACTONE 25 MG TABLET PO SCH (08:02)
[2016-12-14] MEDS: CARVEDILOL 25 MG TABLET PO SCH (08:02)
[2016-12-14] MEDS: ASPIRIN 81 MG TABLET EC PO SCH (08:02)
[2016-12-14] MEDS: SENNA/DOCUSATE TABLET PO SCH (08:02)
[2016-12-14] MEDS: LISINOPRIL 20 MG TABLET PO SCH (08:03)
[2016-12-14] MEDS: ISOSORBIDE MONONITRATE ER 30 MG TABLET PO SCH (08:03)
[2016-12-14] MEDS: FUROSEMIDE 20 MG TABLET PO SCH (08:03)
[2016-12-14] MEDS: PRASUGREL 10 MG TABLET PO SCH (08:03)
[2016-12-14] MEDS: SODIUM CHLORIDE FLUSH 10ML SYR IVF SCH (08:03)
[2016-12-14] MEDS: LEVETIRACETAM 500 MG TABLET PO SCH (08:03)
[2016-12-14] MEDS: HEPARIN 5,000 UNITS/ML, 1ML SQ SCH (08:04)
[2016-12-14 08:05] VITALS: BP 108/74
[2016-12-14 10:00] VITALS: BP 85/60
[2016-12-14] MEDS ORDERED: FUROSEMIDE 40 MG TABLET PO ONE (10:00)
[2016-12-14] MEDS ORDERED: ISOS30TA8 PO (10:04)
[2016-12-14 11:23] VITALS: BP 101/68
[2016-12-14] MEDS ORDERED: FURO20TA3 PO (11:53)
[2016-12-14 13:01] VITALS: BP 105/75
[2016-12-14] MEDS ORDERED: FUROSEMIDE 20 MG TABLET PO SCH (21:00)
== END 2016-12-14 16:45 | DRG 291 ==
LOC: ED 19:36 → EDIP 19:58 → 5SO 20:49
PROVIDERS: ADMIT Internal Medicine; ATTEND Internal Medicine
DX: I13.0 Hypertensive heart and chronic kidney disease with heart failure and stage 1 through stage 4 chronic kidney disease, or unspecified chronic kidney disease (principal); E43 Unspecified severe protein-calorie malnutrition; I50.23 Acute on chronic systolic (congestive) heart failure; J96.10 Chronic respiratory failure, unspecified whether with hypoxia or hypercapnia; D68.69 Other thrombophilia; I48.0 Paroxysmal atrial fibrillation; Z66 Do not resuscitate; E78.5 Hyperlipidemia, unspecified; N18.3 Chronic kidney disease, stage 3 (moderate); D50.9 Iron deficiency anemia, unspecified; E11.22 Type 2 diabetes mellitus with diabetic chronic kidney disease; F17.210 Nicotine dependence, cigarettes, uncomplicated; G40.909 Epilepsy, unspecified, not intractable, without status epilepticus; I25.10 Atherosclerotic heart disease of native coronary artery without angina pectoris; I25.5 Ischemic cardiomyopathy; I71.4 Abdominal aortic aneurysm, without rupture; E11.51 Type 2 diabetes mellitus with diabetic peripheral angiopathy without gangrene; J44.9 Chronic obstructive pulmonary disease, unspecified; N40.0 Benign prostatic hyperplasia without lower urinary tract symptoms; I25.2 Old myocardial infarction; Z85.528 Personal history of other malignant neoplasm of kidney; Z86.73 Personal history of transient ischemic attack (TIA), and cerebral infarction without residual deficits; Z88.6 Allergy status to analgesic agent; Z91.14 Patient's other noncompliance with medication regimen; Z95.5 Presence of coronary angioplasty implant and graft; Z99.81 Dependence on supplemental oxygen; Z71.6 Tobacco abuse counseling
CPT/HCPCS: 36415; 71010; 78452; 80048; 80053; 82728; 83036; 83540; 83550; 83690; 83735; 83880; 84100; 84439; 84443; 84484; 85025; 93005; 93017; 94640; 96361; 96374; 96375; J1644; J2405; J2785; J7620; A9502; C9898; J1940; J2270; J3475; J7030

== ENCOUNTER 2017-12-26 08:42 | Emergency (ER) | payer MEDICARE, MEDICAID ==
[~2017-12-26] VITALS: Ht 172.7 cm; Wt 68.1 kg
[~2017-12-26 08:42] MED LIST changes: -CLOP75TA22 PO; +CLOP75TA52 PO; +DOCU-131 PO; -DOCU-30 PO; +FERR325T18 PO; -FERR325T20 PO; +FURO20TA3 PO; -HYDR-3138 PO; +HYDR-3237 PO; +ISOS30TA8 PO; -MAGN400O4 PO; +MAGN400O7 PO; +NICO-487 TD; -NICO1PAT5 TD; +NITR0.4T28 SL; -NITR0.4T8 SL
[2017-12-26 09:12] LABS: BASOPHILS # (AUTO) 0.03 x10^3/uL (0-0.1); BASOPHILS % (AUTO) 1 % (0-1); EOSINOPHILS % (AUTO) 1 % (1-7); LYMPHOCYTES # (AUTO) 1.17 x10^3/uL (1-3.4); LYMPHOCYTES % (AUTO) 17 % (22-44); MD NO; MEAN CORPUSCULAR HEMOGLOBIN 29.7 pg (27.5-34.5); MEAN CORPUSCULAR HGB CONC 33.3 g/dL (33.2-36.2); MEAN CORPUSCULAR VOLUME 89.2 fL (81-97); MEAN PLATELET VOLUME 9.7 fL (7.4-10.4); MONOCYTES # (AUTO) 0.61 x10^3/uL (0.2-0.8); MONOCYTES % (AUTO) 9 % (2-9); NEUTROPHILS # (AUTO) 5.15 x10^3/uL (1.8-6.8); NEUTROPHILS % (AUTO) 73 % (42-75); PLATELET COUNT 136 x10^3/uL (130-400); RED BLOOD COUNT 5.37 x10^6/uL (4.38-5.82); RED CELL DISTRIBUTION WIDTH 15.7 % (9.4-14.8)
[2017-12-26 09:25] LABS: ALBUMIN 2.9 g/dL (3.4-5.0); ANION GAP 5 mmol/L (5-15); CALCIUM 9.2 mg/dL (8.5-10.1); CHLORIDE 105 mmol/L (98-107); CREATININE 1.59 mg/dL (0.7-1.3)
[2017-12-26 09:28] LABS: TROPONIN I 0.022 ng/mL (0.000-0.045)
[2017-12-26 12:52] VITALS: BP 144/81
== END 2017-12-26 13:40 | disposition home or self-care (01) ==
LOC: ED 09:17
DX: R07.89 Other chest pain (principal); R79.89 Other specified abnormal findings of blood chemistry; N19 Unspecified kidney failure; R77.0 Abnormality of albumin; I25.2 Old myocardial infarction; M06.9 Rheumatoid arthritis, unspecified; I11.0 Hypertensive heart disease with heart failure; I25.10 Atherosclerotic heart disease of native coronary artery without angina pectoris; I50.9 Heart failure, unspecified; G89.29 Other chronic pain; E11.40 Type 2 diabetes mellitus with diabetic neuropathy, unspecified; J44.9 Chronic obstructive pulmonary disease, unspecified; F17.200 Nicotine dependence, unspecified, uncomplicated; I73.9 Peripheral vascular disease, unspecified; E78.5 Hyperlipidemia, unspecified; Z86.73 Personal history of transient ischemic attack (TIA), and cerebral infarction without residual deficits; Z85.528 Personal history of other malignant neoplasm of kidney; Z90.89 Acquired absence of other organs; Z90.49 Acquired absence of other specified parts of digestive tract
CPT/HCPCS: 36415; 71045; 80048; 82040; 83880; 84484; 85025; 93005; 99285